=== PATIENT | female | born 1955 | race Caucasian/White ===

== ENCOUNTER 2018-09-30 15:39 | Emergency (ER) | payer MEDICARE ==
[~2018-09-30] VITALS: Ht 152.4 cm; Wt 69.0 kg
[~2018-09-30 15:39] MED LIST: ADDERALL30 MG PO; ALBUTEROL SUL0.083 % IN; COPAXONE40 MG/ML SC; OXYCODONE HCL5 MG PO; OXYCONTIN40 MG PO; PREDNISONE50 MG PO; SOMA350 MG PO; TESSALON PER100 MG PO; VENTOLIN HFA IN; VISTARIL 50MG C50 M1 PO; ZITHROMAX250 MG PO
[2018-09-30] MEDS ORDERED: BACTRIM DS1 TAB PO (16:15)
[2018-09-30] MEDS ORDERED: BACTROBAN21 EX (16:15)
[2018-09-30 16:25] VITALS: BP 126/71
== END 2018-09-30 16:40 | disposition home or self-care (01) ==
LOC: ED 15:39
DX: L03.116 Cellulitis of left lower limb (principal); L03.115 Cellulitis of right lower limb; L03.114 Cellulitis of left upper limb; L03.113 Cellulitis of right upper limb; B95.62 Methicillin resistant Staphylococcus aureus infection as the cause of diseases classified elsewhere; J44.9 Chronic obstructive pulmonary disease, unspecified; F17.210 Nicotine dependence, cigarettes, uncomplicated; Z86.14 Personal history of Methicillin resistant Staphylococcus aureus infection